=== PATIENT | female | born 1940 | race Caucasian/White ===

== ENCOUNTER 2017-10-24 10:40 | Emergency (ER) | payer MEDICARE ==
[~2017-10-24] VITALS: Ht 170.2 cm; Wt 81.8 kg
[2017-10-24 11:56] LABS: INR 1.2 INR; PARTIAL THROMBOPLASTIN TIME 25 SECONDS (22-32); PROTHROMBIN TIME 12.1 SECONDS (9.0-12.0)
[2017-10-24 12:00] LABS: BASOPHILS % (AUTO) 0.4 % (0-1); EOSINOPHILS # (AUTO) 0.3 X10'3 (0-0.9); EOSINOPHILS % (AUTO) 2.9 % (0-6); HEMATOCRIT 38.4 % (35.0-45.0); LYMPHOCYTES # (AUTO) 1.7 X10'3 (1.1-4.8); LYMPHOCYTES % (AUTO) 16.5 % (21-51); MEAN CORPUSCULAR HEMOGLOBIN 21.4 PG (27.0-31.0); MEAN CORPUSCULAR HGB CONC 31.4 % (33.0-36.5); MEAN CORPUSCULAR VOLUME 68.1 FL (78-98); MEAN PLATELET VOLUME 8.6 FL (7.4-10.4); MONOCYTES # (AUTO) 0.8 X10'3 (0-0.9); MONOCYTES % (AUTO) 7.5 % (2-12); NEUTROPHILS # (AUTO) 7.6 X10'3 (1.8-7.7); NEUTROPHILS % (AUTO) 72.7 % (42-75); PLATELET COUNT 335 X10'3 (140-440); RED BLOOD COUNT 5.64 X10'6 (4.20-5.60); RED CELL DISTRIBUTION WIDTH 21.4 % (11.5-14.5); WHITE BLOOD COUNT 10.5 X10'3 (4.5-11.0)
[2017-10-24 12:05] LABS: ALANINE AMINOTRANSFERASE 35 U/L (12-78); ALBUMIN 3.1 G/DL (3.4-5.0); ALBUMIN/GLOBULIN RATIO 0.6 (1.1-1.5); ALKALINE PHOSPHATASE 84 IU/L (46-116); ANION GAP 11 (8-16); ASPARTATE AMINO TRANSFERASE 25 U/L (10-37); BLOOD UREA NITROGEN 24 MG/DL (7-18); BUN/CREATININE RATIO 18.5 (6.6-38.0); CALCIUM 9.5 MG/DL (8.5-10.1); CHLORIDE 105 MMOL/L (99-107); GLUCOSE 111 MG/DL (70-104); POTASSIUM 4.7 MMOL/L (3.5-5.1); SODIUM 142 MMOL/L (135-145); TOTAL CARBON DIOXIDE 26.4 MMOL/L (24-32); TOTAL PROTEIN 7.9 G/DL (6.4-8.2); eGFR 40 ML/MIN
[2017-10-24 13:35] LABS: ANISOCYTOSIS 3+; PLATELET ESTIMATE NORMAL
[2017-10-24 13:36] LABS: MICROCYTOSIS 2+; POIKILOCYTOSIS FEW; POLYCHROMASIA 1+
[2017-10-24 13:50] LABS: CLARITY,URINE CLEAR (Clear); COLOR,URINE YELLOW (Yellow); GLUCOSE, URINE NEGATIVE (Neg); KETONES,URINE NEGATIVE (Neg); LEUKOCYTE ESTERASE ,URINE NEGATIVE (Neg); NITRITES, URINE NEGATIVE (Neg); OCCULT BLOOD,URINE NEGATIVE (Neg); PH,URINE 6.5 (4.8-8.0); PROTEIN,URINE 100 mg/dl (Neg)
[2017-10-24 13:52] LABS: UA COLLECTION TYPE CLN CATCH MIDSTREAM
[2017-10-24 14:20] LABS: MUCUS STRANDS FEW /LPF (Neg); SQUAMOUS EPITHELIAL CELL,UR MANY /LPF (FEW)
[2017-10-24 14:21] LABS: HYALINE CASTS 0-3 /LPF (NEGATIVE)
[2017-10-24 14:22] LABS: RBC,URINE 0-2 /HPF (0-2); WBC,URINE 0-4 /HPF (0-4); YEAST MODERATE /HPF (NEGATIVE)
[2017-10-24 14:23] LABS: BACTERIA,URINE 2+ /HPF (Neg)
[2017-10-24] MEDS ORDERED: PANT-47 PO (14:31)
[2017-10-24] MEDS ORDERED: normal saline 500ml IV soln 1,000 ML IV ONE (14:35)
[2017-10-24 15:18] VITALS: BP 134/82
== END 2017-10-24 16:11 | disposition home or self-care (01) ==
LOC: ER 10:40
DX: K44.9 Diaphragmatic hernia without obstruction or gangrene (principal); I50.9 Heart failure, unspecified; N17.9 Acute kidney failure, unspecified; E86.0 Dehydration; R60.0 Localized edema; I48.91 Unspecified atrial fibrillation
CPT/HCPCS: 36415; 71045; 80053; 81001; 84484; 85025; 85610; 85730; 93005; 96360; 99285; J7030

== ENCOUNTER 2018-06-14 12:46 | Inpatient (IN) | payer MEDICARE, OTHER ==
[~2018-06-14] VITALS: Ht 162.6 cm; Wt 68.2 kg
[~2018-06-14 12:46] MED LIST: PANT-47 PO
[2018-06-14 13:37] LABS: BASOPHILS # (AUTO) 0.1 X10'3 (0-0.2); BASOPHILS % (AUTO) 1.1 % (0-1); EOSINOPHILS # (AUTO) 0.4 X10'3 (0-0.9); EOSINOPHILS % (AUTO) 5.7 % (0-6); HEMATOCRIT 36.6 % (35.0-45.0); HEMOGLOBIN 11.5 g/dl (12.0-16.0); LYMPHOCYTES % (AUTO) 26.7 % (21-51); MEAN CORPUSCULAR HEMOGLOBIN 22.6 PG (27.0-31.0); MEAN CORPUSCULAR HGB CONC 31.3 % (33.0-36.5); MEAN CORPUSCULAR VOLUME 72.3 FL (78-98); MEAN PLATELET VOLUME 9.4 FL (7.4-10.4); MONOCYTES # (AUTO) 0.7 X10'3 (0-0.9); MONOCYTES % (AUTO) 9.1 % (2-12); NEUTROPHILS # (AUTO) 4.2 X10'3 (1.8-7.7); NEUTROPHILS % (AUTO) 57.4 % (42-75); PLATELET COUNT 260 X10'3 (140-440); RED BLOOD COUNT 5.07 X10'6 (4.20-5.60); RED CELL DISTRIBUTION WIDTH 19.4 % (11.5-14.5); WHITE BLOOD COUNT 7.4 X10'3 (4.5-11.0)
[2018-06-14] MEDS ORDERED: ondansetron/PF 4mg/2ml inj IV ONE (13:45)
[2018-06-14] MEDS ORDERED: normal saline 1000ML IV soln IVB ONE (13:45)
[2018-06-14 13:50] LABS: INR 1.2 INR; PARTIAL THROMBOPLASTIN TIME 29 SECONDS (22-32); PROTHROMBIN TIME 12.1 SECONDS (9.0-12.0)
[2018-06-14 13:51] LABS: ALANINE AMINOTRANSFERASE 24 U/L (12-78); ALBUMIN 3.1 G/DL (3.4-5.0); ALBUMIN/GLOBULIN RATIO 0.7 (1.1-1.5); ALKALINE PHOSPHATASE 104 IU/L (46-116); ANION GAP 10 (8-16); ASPARTATE AMINO TRANSFERASE 48 U/L (10-37); BILIRUBIN,TOTAL 1.3 MG/DL (0.1-1.0); BLOOD UREA NITROGEN 17 MG/DL (7-18); BUN/CREATININE RATIO 9.2 (6.6-38.0); CALCIUM 9.7 MG/DL (8.5-10.1); CHLORIDE 100 MMOL/L (99-107); CREATININE 1.84 MG/DL (0.40-0.90); GLUCOSE 105 MG/DL (70-104); POTASSIUM 3.4 MMOL/L (3.5-5.1); SODIUM 139 MMOL/L (135-145); TOTAL CARBON DIOXIDE 29.2 MMOL/L (24-32); TOTAL PROTEIN 7.7 G/DL (6.4-8.2); eGFR 27 ML/MIN
[2018-06-14 14:28] LABS: D-DIMER 1.78 MG/L FEU (0-0.50)
[2018-06-14] MEDS ORDERED: heparin 10,000 units/1 ML INJ IV ONE (15:30)
[2018-06-14] MEDS ORDERED: heparin 25,000 UNIT/250ml bag 250 ML IV SCH (15:30)
[2018-06-14] MEDS ORDERED: heparin 10,000 units/1 ML INJ IV PRN (15:30)
[2018-06-14] MEDS ORDERED: acetaminophen 325mg tablet PO PRN ×2 (15:40)
[2018-06-14] MEDS ORDERED: mag hydrox/Alum hydrox/simeth 30ml oral suspension PO PRN (15:40)
[2018-06-14] MEDS ORDERED: magnesium hydroxide 30ml (MOM) UD suspension PO PRN (15:40)
[2018-06-14] MEDS ORDERED: FAMO-128 PO (16:13)
[2018-06-14] MEDS ORDERED: KETO15CR2 TOP (16:13)
[2018-06-14] MEDS ORDERED: POTA10CA44 PO (16:13)
[2018-06-14] MEDS ORDERED: LEVO125T8 PO (16:13)
[2018-06-14] MEDS ORDERED: METO-384 PO (16:13)
[2018-06-14] MEDS: furosemide 20 MG/2 ML vial IV SCH (16:23)
[2018-06-14] MEDS: metoprolol tartrate 12.5mg (1/2 tablet) PO SCH (20:00)
[2018-06-15 01:39] LABS: BASOPHILS # (AUTO) 0.1 X10'3 (0-0.2); BASOPHILS % (AUTO) 1.1 % (0-1); EOSINOPHILS # (AUTO) 0.6 X10'3 (0-0.9); EOSINOPHILS % (AUTO) 8.8 % (0-6); HEMATOCRIT 34.3 % (35.0-45.0); HEMOGLOBIN 11.1 g/dl (12.0-16.0); LYMPHOCYTES # (AUTO) 2.1 X10'3 (1.1-4.8); LYMPHOCYTES % (AUTO) 32.9 % (21-51); MEAN CORPUSCULAR HEMOGLOBIN 23.6 PG (27.0-31.0); MEAN CORPUSCULAR HGB CONC 32.4 % (33.0-36.5); MEAN CORPUSCULAR VOLUME 72.8 FL (78-98); MEAN PLATELET VOLUME 9.6 FL (7.4-10.4); MONOCYTES # (AUTO) 0.5 X10'3 (0-0.9); MONOCYTES % (AUTO) 7.2 % (2-12); PLATELET COUNT 239 X10'3 (140-440); RED BLOOD COUNT 4.71 X10'6 (4.20-5.60); RED CELL DISTRIBUTION WIDTH 18.1 % (11.5-14.5); WHITE BLOOD COUNT 6.3 X10'3 (4.5-11.0)
[2018-06-15 01:42] LABS: ALBUMIN 2.8 G/DL (3.4-5.0); ANION GAP 8 (8-16); BLOOD UREA NITROGEN 14 MG/DL (7-18); BUN/CREATININE RATIO 8.4 (6.6-38.0); CALCIUM 9.1 MG/DL (8.5-10.1); CHLORIDE 103 MMOL/L (99-107); CREATININE 1.66 MG/DL (0.40-0.90); GLUCOSE 102 MG/DL (70-104); SODIUM 141 MMOL/L (135-145); TOTAL CARBON DIOXIDE 30.5 MMOL/L (24-32); eGFR 30 ML/MIN
[2018-06-15 01:45] LABS: POTASSIUM 2.8 MMOL/L (3.5-5.1)
[2018-06-15] MEDS ORDERED: potassium Cl 20 mEq SR tablet PO PRN (01:50)
[2018-06-15] MEDS ORDERED: potassium Cl 40MEQ/NS 500ml 500 ML IV PRN ×2 (01:50)
[2018-06-15 03:00] VITALS: BP 123/81
[2018-06-15] MEDS: potassium Cl 20 mEq SR tablet PO PRN ×2 (04:15→07:40)
[2018-06-15 06:00] VITALS: BP 123/76
[2018-06-15] MEDS: ondansetron/PF 4mg/2ml inj IV PRN ×2 (06:48→16:26)
[2018-06-15] MEDS: metoprolol tartrate 12.5mg (1/2 tablet) PO SCH ×2 (07:44→19:42)
[2018-06-15] MEDS: furosemide 20 MG/2 ML vial IV SCH ×2 (07:44→19:48)
[2018-06-15] MEDS ORDERED: enoxaparin 40mg/0.4ml syringe SUBCUT SCH (08:00)
[2018-06-15] MEDS ORDERED: magnesium Cl slow-release 64mg tablet PO PRN (09:55)
[2018-06-15] MEDS ORDERED: magnesium 4gm in 100ml NS 100 ML IV PRN (09:55)
[2018-06-15 11:00] VITALS: BP 120/79
[2018-06-15] MEDS ORDERED: potassium Cl oral solution 20 MEQ/15 ML PO PRN (11:35)
[2018-06-15 11:40] LABS: MAGNESIUM 1.5 MG/DL (1.5-2.4); POTASSIUM 3.1 MMOL/L (3.5-5.1)
[2018-06-15] MEDS ORDERED: magnesium 2GM in 50ml NS 50 ML IV ONE (11:45)
[2018-06-15] MEDS: potassium Cl oral solution 20 MEQ/15 ML PO PRN ×2 (12:25→19:41)
[2018-06-15] MEDS: levoTHYROXINE 75mcg tablet PO SCH (12:27)
[2018-06-15 15:00] VITALS: BP 121/76
[2018-06-15] MEDS ORDERED: pantoprazole 40 MG vial IV ONE (16:35)
[2018-06-15] MEDS ORDERED: metoprolol succinate 25mg (24-HOUR) SR. Tablet PO ONE (17:00)
[2018-06-15] MEDS: normal saline 1000ml 1,000 ML IV SCH (17:14)
[2018-06-15 18:00] VITALS: BP 130/62
[2018-06-15] MEDS: apixaban 5mg tablet PO SCH (19:43)
[2018-06-15] MEDS ORDERED: metoprolol tartrate 1mg/ml inj IV ONE (21:35)
[2018-06-15 22:00] VITALS: BP 112/65
[2018-06-15 23:38] LABS: MAGNESIUM 2.1 MG/DL (1.5-2.4); POTASSIUM 4.3 MMOL/L (3.5-5.1)
[2018-06-16] VITALS (8 sets, daily range): BP systolic 96–117; BP diastolic 48–80
[2018-06-16] MEDS ORDERED: metoprolol tartrate 1mg/ml inj IV ONE (01:35)
[2018-06-16] MEDS ORDERED: ALPRAZolam 0.25mg tablet PO ONE (01:35)
[2018-06-16 06:04] LABS: BASOPHILS # (AUTO) 0.1 X10'3 (0-0.2); EOSINOPHILS # (AUTO) 0.6 X10'3 (0-0.9); EOSINOPHILS % (AUTO) 7.8 % (0-6); HEMATOCRIT 36.2 % (35.0-45.0); HEMOGLOBIN 11.3 g/dl (12.0-16.0); LYMPHOCYTES # (AUTO) 2.5 X10'3 (1.1-4.8); MEAN CORPUSCULAR HEMOGLOBIN 22.7 PG (27.0-31.0); MEAN CORPUSCULAR HGB CONC 31.2 % (33.0-36.5); MEAN CORPUSCULAR VOLUME 72.5 FL (78-98); MONOCYTES % (AUTO) 12.5 % (2-12); NEUTROPHILS # (AUTO) 3.7 X10'3 (1.8-7.7); NEUTROPHILS % (AUTO) 46.7 % (42-75); PLATELET COUNT 257 X10'3 (140-440); RED BLOOD COUNT 4.99 X10'6 (4.20-5.60); RED CELL DISTRIBUTION WIDTH 19.6 % (11.5-14.5); WHITE BLOOD COUNT 7.8 X10'3 (4.5-11.0)
[2018-06-16 06:19] LABS: ALBUMIN 2.7 G/DL (3.4-5.0); ANION GAP 8 (8-16); BLOOD UREA NITROGEN 14 MG/DL (7-18); BUN/CREATININE RATIO 7.4 (6.6-38.0); CHLORIDE 106 MMOL/L (99-107); GLUCOSE 111 MG/DL (70-104); MAGNESIUM 2.1 MG/DL (1.5-2.4); POTASSIUM 4.2 MMOL/L (3.5-5.1); SODIUM 141 MMOL/L (135-145); TOTAL CARBON DIOXIDE 27.1 MMOL/L (24-32); eGFR 26 ML/MIN
[2018-06-16] MEDS ORDERED: metoprolol succinate 25mg (24-HOUR) SR. Tablet PO SCH ×2 (08:00)
[2018-06-16] MEDS ORDERED: pantoprazole 40 MG vial IV SCH (08:00)
[2018-06-16] MEDS ORDERED: levoTHYROXINE 125mcg tablet PO SCH (08:00)
[2018-06-16] MEDS ORDERED: famotidine 20mg tablet PO SCH (08:00)
[2018-06-16] MEDS: levoTHYROXINE 75mcg tablet PO SCH (10:02)
[2018-06-16] MEDS: pantoprazole 40mg Tablet.DR PO SCH (10:02)
[2018-06-16] MEDS: apixaban 5mg tablet PO SCH ×2 (10:02→19:55)
[2018-06-16] MEDS: furosemide 20 MG/2 ML vial IV SCH ×2 (10:03→19:55)
[2018-06-16] MEDS: normal saline 1000ml 1,000 ML IV SCH (12:45)
[2018-06-17] MEDS ORDERED: ALPRAZolam 0.25mg tablet PO ONE (00:25)
[2018-06-17 02:00] VITALS: BP 124/62
[2018-06-17 06:00] VITALS: BP 106/55
[2018-06-17 07:20] LABS: BASOPHILS # (AUTO) 0.1 X10'3 (0-0.2); BASOPHILS % (AUTO) 1.2 % (0-1); EOSINOPHILS # (AUTO) 1.1 X10'3 (0-0.9); EOSINOPHILS % (AUTO) 10.7 % (0-6); HEMATOCRIT 34.7 % (35.0-45.0); LYMPHOCYTES # (AUTO) 2.6 X10'3 (1.1-4.8); MEAN CORPUSCULAR HGB CONC 31.7 % (33.0-36.5); MEAN CORPUSCULAR VOLUME 72.5 FL (78-98); MEAN PLATELET VOLUME 10.6 FL (7.4-10.4); MONOCYTES # (AUTO) 0.8 X10'3 (0-0.9); MONOCYTES % (AUTO) 8.1 % (2-12); NEUTROPHILS # (AUTO) 5.4 X10'3 (1.8-7.7); PLATELET COUNT 250 X10'3 (140-440); RED BLOOD COUNT 4.78 X10'6 (4.20-5.60); RED CELL DISTRIBUTION WIDTH 19.7 % (11.5-14.5)
[2018-06-17 07:31] LABS: ALBUMIN 2.8 G/DL (3.4-5.0); ANION GAP 8 (8-16); BLOOD UREA NITROGEN 13 MG/DL (7-18); BUN/CREATININE RATIO 7.2 (6.6-38.0); CALCIUM 8.8 MG/DL (8.5-10.1); CHLORIDE 103 MMOL/L (99-107); CREATININE 1.81 MG/DL (0.40-0.90); MAGNESIUM 1.6 MG/DL (1.5-2.4); POTASSIUM 3.4 MMOL/L (3.5-5.1); SODIUM 140 MMOL/L (135-145); TOTAL CARBON DIOXIDE 29.2 MMOL/L (24-32); eGFR 27 ML/MIN
[2018-06-17 07:32] LABS: GLUCOSE 86 MG/DL (70-104)
[2018-06-17] MEDS: furosemide 20 MG/2 ML vial IV SCH (08:00)
[2018-06-17] MEDS ORDERED: metoprolol succinate 25mg (24-HOUR) SR. Tablet PO SCH (08:00)
[2018-06-17] MEDS: apixaban 5mg tablet PO SCH (08:24)
[2018-06-17] MEDS: pantoprazole 40mg Tablet.DR PO SCH (08:25)
[2018-06-17] MEDS: levoTHYROXINE 75mcg tablet PO SCH (08:30)
[2018-06-17] MEDS: normal saline 1000ml 1,000 ML IV SCH (08:45)
[2018-06-17 11:00] VITALS: BP 100/68
[2018-06-17] MEDS ORDERED: potassium Cl oral solution 20 MEQ/15 ML PO ONE (12:30)
[2018-06-17] MEDS ORDERED: LEVO75TA7 PO (13:29)
[2018-06-17] MEDS ORDERED: APIX5TAB3 PO (13:29)
[2018-06-17] MEDS ORDERED: FURO-150 PO (13:29)
[2018-06-17] MEDS ORDERED: METO-395 PO (13:29)
[2018-06-17] MEDS ORDERED: MAGN400C PO (13:42)
== END 2018-06-17 15:35 | disposition home or self-care (01) | DRG 682 ==
LOC: ER 12:46 → ED HOLD 15:39 → EDBEDREQ 06-15 02:29 → PCU 3S 06-15 03:21
PROVIDERS: ADMIT Internal Medicine; ATTEND Family Medicine
PROC: CB121ZZ Planar Nuclear Medicine Imaging of Lungs and Bronchi using Technetium 99m (Tc-99m) (ICD-10-PCS; principal; 2018-06-15)
DX: N17.9 Acute kidney failure, unspecified (principal); I50.43 Acute on chronic combined systolic (congestive) and diastolic (congestive) heart failure; Q21.1 Atrial septal defect; E87.2 Acidosis; I47.2 Ventricular tachycardia; E03.9 Hypothyroidism, unspecified; I11.0 Hypertensive heart disease with heart failure; I34.0 Nonrheumatic mitral (valve) insufficiency; I48.0 Paroxysmal atrial fibrillation; I71.4 Abdominal aortic aneurysm, without rupture; K21.9 Gastro-esophageal reflux disease without esophagitis; R79.1 Abnormal coagulation profile; Z66 Do not resuscitate; Z79.890 Hormone replacement therapy; Z90.710 Acquired absence of both cervix and uterus; Z90.49 Acquired absence of other specified parts of digestive tract; Z88.6 Allergy status to analgesic agent; Z79.82 Long term (current) use of aspirin; Z79.899 Other long term (current) drug therapy; Z87.891 Personal history of nicotine dependence; Z82.49 Family history of ischemic heart disease and other diseases of the circulatory system
CPT/HCPCS: 36415; 71045; 78582; 80048; 80053; 83605; 83735; 83880; 84132; 84443; 84484; 85025; 85379; 85610; 85730; 87070; 93005; 93306; 93970; 96360; 96361; 97110; 97116; 97530; 99285; A9539; A9540; C9113; G0378; J1644; J1650; J1940; J2405; J3475; J3490; J7030